=== PATIENT | male | born 1995 | race Hispanic/Latino ===

== ENCOUNTER 2018-02-18 22:03 | Emergency (ER) | payer SELFPAY ==
[~2018-02-18] VITALS: Ht 180.3 cm; Wt 99.8 kg
[2018-02-18 23:22] VITALS: BP 146/86
== END 2018-02-18 23:35 | disposition home or self-care (01) ==
LOC: FSED 22:03
DX: L02.416 Cutaneous abscess of left lower limb (principal); L03.116 Cellulitis of left lower limb; F17.210 Nicotine dependence, cigarettes, uncomplicated
CPT/HCPCS: 99282

== ENCOUNTER 2022-07-27 12:29 | Emergency (ER) | payer OTHER ==
[~2022-07-27] VITALS: Ht 180.3 cm; Wt 99.8 kg
[2022-07-27] MEDS ORDERED: AZITHROMYCIN 250 MG TAB PO ONE (13:00)
[2022-07-27] MEDS ORDERED: DOXYCYCLINE HY100 MG PO (13:04)
[2022-07-27] MEDS ORDERED: ONDANSETRON HCL 4 MG ORAL DISINTEGRATING TAB PO ONE (13:15)
[2022-07-27] MEDS ORDERED: GENTAMICIN SULFATE 40 MG/ML 2 ML VIAL IM ONE (13:25)
[2022-07-27 14:14] VITALS: BP 130/73; PULSE 55; O2SAT 99
== END 2022-07-27 14:15 | disposition home or self-care (01) ==
LOC: ER 12:32
DX: A64 Unspecified sexually transmitted disease (principal); F17.210 Nicotine dependence, cigarettes, uncomplicated
CPT/HCPCS: 99282; J1580; Q0162

== ENCOUNTER 2024-04-04 21:19 | Emergency (ER) | payer SELFPAY ==
[~2024-04-04] VITALS: Ht 180.3 cm; Wt 88.5 kg
[~2024-04-04 21:19] MED LIST: DOXYCYCLINE HY100 MG PO
[2024-04-04 22:00] VITALS: PULSE 73; RESP 18; TEMP 98.5
[2024-04-04] MEDS: ONDANSETRON HCL INJ 2MG/ML 2ML 2 MG/ML VIAL IV STA (22:33)
[2024-04-04] MEDS: KETOROLAC TROMETHAMINE 30 MG/ML VIAL IV STA (22:34)
[2024-04-04] MEDS ORDERED: IOPAMIDOL 370 MG/ML 100 ML INFUS..BTL INJ ONE (22:49)
[2024-04-05] MEDS ORDERED: KETOROLAC TROME10 MG PO (01:31)
[2024-04-05] MEDS ORDERED: CIPRO500 MG PO (01:32)
[2024-04-05 01:45] VITALS: BP 108/73; PULSE 80; RESP 18; TEMP 98.6; O2SAT 97
== END 2024-04-05 01:45 | disposition home or self-care (01) ==
LOC: FSED 22:08
DX: R10.31 Right lower quadrant pain (principal); N30.90 Cystitis, unspecified without hematuria; K76.0 Fatty (change of) liver, not elsewhere classified; F17.210 Nicotine dependence, cigarettes, uncomplicated
CPT/HCPCS: 74177; 80053; 80076; 81003; 85025; 96374; 96375; 99284; J1885; J2405; Q9967